=== PATIENT | male | born 1990 | race Caucasian/White ===

== ENCOUNTER 2017-05-20 06:51 | Emergency (ER) | payer OTHER ==
[~2017-05-20] VITALS: Ht 188 cm; Wt 77.1 kg
--- NOTE | 2017-05-20 07:06 | NUR ---
PATIENT WALKED INTO ER W C/O VOMITING BLOOD AFTER DRINKING TOO MUCH ETOH.
--- NOTE | 2017-05-20 07:18 | NUR ---
RECEIVED PT FROM SOCIAL SCIENCE TEACHER MELY CASTRO. PT IS A 26 Y/O MALE. AMBULATORY WITH STEADY GAIT. SPEAKING IN FULL SENTENCES. NAD NOTED. VSS. HERE FOR: ETOH ABUSE, WITH COMPLAINT OF VOMITING "BLOOD". NO VOMITING NOTED AT THIS TIME, +NAUSEA, NO TREMORS, NO TACHYCARDIA NOTED, PT VERBALIZED THAT HE IS A BINGE DRINKER AND STARTED DRINKING THURSDAY-LAST NIGHT. PT VERBALIZED OF DRINKING VODKA, ABOUT A PINT PER DAY WHEN ON A BINGING SPREE. WCTM PT AT THIS TIME. MD DEL TORO AT BEDSIDE PERFORMING MSE.
[2017-05-20 07:47] LABS: BASOPHILS % (AUTO) 0.5 % (0.0-2.0); EOSINOPHILS % (AUTO) 0.1 % (0.0-7.0); HEMATOCRIT 46.8 % (40-50); LYMPHOCYTES % (AUTO) 14.5 % (20.5-51.5); MEAN CORPUSCULAR HEMOGLOBIN 30.2 UUG (27.0-31.0); MEAN CORPUSCULAR HGB CONC 34 g/dL (32.0-37.0); MEAN CORPUSCULAR VOLUME 88.5 FL (82.0-92.0); MONOCYTES # (AUTO) 0.2 K/UL (0.1-1.30); MONOCYTES % (AUTO) 2.9 % (0.0-11.0); NEUTROPHILS # (AUTO) 5.6 K/UL (1.8-8.9); PLATELET COUNT (AUTO) 423 K/UL (150-450); RED BLOOD CELL COUNT(AUTO) 5.28 MIL/UL (4.7-6.1); WHITE BLOOD COUNT (AUTO) 6.9 K/UL (4.0-11.2)
[2017-05-20 07:56] LABS: BILIRUBIN,DIRECT 0.2 mg/dL (0.0-0.2); BILIRUBIN,TOTAL 0.8 mg/dL (0.2-1.0); CREATININE 1.2 mg/dL (0.6-1.3); POTASSIUM 4.2 mmol/L (3.5-5.1); TOTAL PROTEIN, SERUM 8.3 g/dL (6.4-8.2)
--- NOTE | 2017-05-20 10:06 | NUR ---
PT IS AT BEDSIDE. ALL MEDICATIONS ADMINISTERED ORDERED. MD NOTIFIED REGARDING IVF COMPLETED ORDERED. PT IS AMBULATORY WITH STEADY GAIT. SPEAKING INFULL SENTENCES. NAD NOTED. VSS. WCTM PT AT THIS TIME. WAITING FOR FURTHER PLAN OF CARE.
--- NOTE | 2017-05-20 10:16 | NUR ---
PO TRIAL PERFORMED. PT WAS ABLE TO TOLERATE 500ML OF PO FLUIDS WITHOUT NAUSEA/VOMITING.
--- NOTE | 2017-05-20 11:23 | NUR ---
Patient discharged to home in stable conditon. Written and verbal after care instructions given, prescription provided per MD's order. Patient verbalizes understanding of instructions. No further questions or concerns noted prior on leaving the ED.
== END 2017-05-20 11:24 | disposition home or self-care (01) ==
LOC: ER 06:51
DX: K92.0 Hematemesis (principal); F10.10 Alcohol abuse, uncomplicated
CPT/HCPCS: 36415; 71010; 83690; 85025; 85730; 86850; 86900; 86901; A4663; C9113; J2405; J7030